=== PATIENT | female | born 1960 | race Caucasian/White ===

== ENCOUNTER → 2016-09-13 | Outpatient (CLI) | payer OTHER ==
[~2016-09-13] MED LIST: ESTR2TAB PO; HYDR-5688 PO; LEVO175T PO; MULT-506 PO
== END | disposition home or self-care (01) ==
LOC: C.LAB1850 14:34
PROVIDERS: ATTEND Internal Medicine
DX: E03.9 Hypothyroidism, unspecified (principal)

== ENCOUNTER → 2017-03-10 | Outpatient (CLI) | payer OTHER ==
[~2017-03-10] MED LIST changes: -HYDR-5688 PO
[2017-03-10 17:43] LABS: BASO % 0.4 %; BASO ABS # 0.02 K/uL (0-0.2); COMPLETE YES; EOS % 3.3 %; HEMATOCRIT 37.6 % (37-47); IG% 0.2 %; LYMPH % 30.3 %; LYMPH ABS # 1.46 K/uL (1.2-3.4); MEAN CELL VOLUME 91.7 fL (80-100); MEAN CORPUSCULAR HGB CONC 34.8 g/dl (32-36); MEAN PLATELET VOLUME 11.2 fL (7.4-10.4); MONO % 7.1 %; NEUT % 58.7 %; PLATELET COUNT 252 K/uL (130-400); WHITE BLOOD COUNT 4.82 K/uL (4.8-10.8)
[2017-03-10 18:02] LABS: BLOOD UREA NITROGEN 18 mg/dl (7-18); CREATININE 0.82 mg/dl (0.60-1.20)
[2017-03-10 18:11] LABS: THYROID STIMULATING HORMONE 0.546 uIu/ml (0.300-4.500)
[2017-03-10 18:31] LABS: LYME DISEASE AB IGG NEG (NEG); LYME DISEASE AB IGM NEG (NEG)
[2017-03-15 18:21] LABS: ANTI-68 kd Ag (HSP-70 Ab) NEGATIVE (NEGATIVE)
== END | disposition home or self-care (01) ==
LOC: C.LAB1850 15:57
PROVIDERS: ATTEND Physician Assistant
DX: H91.21 Sudden idiopathic hearing loss, right ear (principal)

== ENCOUNTER → 2017-03-21 | Outpatient (CLI) | payer OTHER ==
[~2017-03-21] MED LIST changes: +GADAVIST IV PRN
--- NOTE | 2017-03-21 11:14 | DIAGNOSTIC IMAGING REPORT ---
MRI OF THE BRAIN AND IACS WITHOUT AND WITH IV CONTRAST CLINICAL HISTORY: Sudden onset right-sided hearing loss. Tinnitus. COMPARISON STUDY: No previous studies for comparison. TECHNIQUE: MRI of the brain was performed from the vertex to the skull base utilizing various T1 and T2 weighted sequences. Following the IV administration of 7 mL of Gadavist contrast, additional enhanced images were obtained. FINDINGS: Sagittal T1, axial diffusion, proton density and T2 weighted axial, coronal FLAIR, and pre and post axial T1-weighted images were acquired. These were supplemented with post gadolinium coronal T1 weighted images. No intra or extra-axial mass lesions are visualized. Axial diffusion-weighted images reveal no evidence of acute or subacute infarction. There is no evidence of ventricular dilatation. Proton density T2-weighted and FLAIR images reveal a nonspecific 4 mm focus of increased FLAIR signal within the subcortical left frontoparietal white matter. A 4 mm focus of increased FLAIR signal within the left central yue, is not confirmed on additional sequences and may be artifactual. There are no abnormal flow voids. There is no evidence of pathologic enhancement. No cerebellopontine angle masses are visualized. The 7th and 8th nerve complexes appear normal bilaterally. IMPRESSION: 1. No cerebellopontine angle masses identified 2. No evidence of acute or subacute infarction 3. Nonspecific 4 mm focus of increased FLAIR signal within the subcortical left frontoparietal white matter Electronically signed by: Jovon Ortiz M.D. 03/21/2017 11:13 AM Dictated Date/Time: 03/21/2017 8:58 AM
== END | disposition home or self-care (01) ==
PROVIDERS: ATTEND Physician Assistant
DX: H91.21 Sudden idiopathic hearing loss, right ear (principal)

== ENCOUNTER → 2017-05-02 | Outpatient (CLI) | payer OTHER ==
[~2017-05-02] MED LIST changes: -GADAVIST IV PRN
--- NOTE | 2017-05-03 07:41 | MAMMOGRAPHY REPORT ---
BILATERAL DIGITAL SCREENING MAMMOGRAM TOMOSYNTHESIS WITH CAD: 05/02/2017 CLINICAL HISTORY: Routine screening examination. TECHNIQUE: Breast tomosynthesis in addition to standard 2D mammography was performed. Current study was also evaluated with a Computer Aided Detection (CAD) system. COMPARISON: Comparison is made to exams dated: 07/06/2016 localization, 05/24/2016 mammogram, 2015 ultrasound, 05/12/2016 mammogram, 04/29/2016 mammogram, and 12/13/2013 mammogram - [facility]. BREAST COMPOSITION: The tissue of both breasts is heterogeneously dense, which may obscure small mas ses. FINDINGS: A linear scar marker overlies the upper outer quadrant of the left breast, denoting an area of surgical excisional biopsy that yielded a radial scar. There are benign appearing calcifications in the left breast. No new suspicious mass, architectural distortion or cluster of microcalcificati ons is seen. IMPRESSION: ACR BI-RADS CATEGORY 1: NEGATIVE There is no mammographic evidence of malignancy. A 1 year screening mammogram is recommended. The pa tient will receive written notification of the results. Approximately 10% of breast cancers are not detected with mammography. A negative mammographic report should not delay biopsy if a clinically suggestive mass is present. Nancy Kolb M.D. ay/:05/02/2017 16:34:25 [employer]cycle [employer]acer: Jorge LEE(R)(M), [facility] letter sent: Normal 1/2 BI-RADS Code: ACR BI-RADS Category 1: Negative
== END | disposition home or self-care (01) ==
LOC: C.MAMM 14:53
PROVIDERS: ATTEND Obstetrics & Gynecology
DX: Z12.31 Encounter for screening mammogram for malignant neoplasm of breast (principal)